=== PATIENT | male | born 1950 | race African-American/Black ===

== ENCOUNTER 2020-03-01 09:37 | Emergency (ER) | payer MEDICARE, SELFPAY ==
--- NOTE | 2020-03-01 10:25 | CT ---
CT HEAD WITHOUT CONTRAST: Date: 03/01/2020 INDICATION: Mental status change. Possible head injury. FINDINGS: Ventricles have normal size and position. There is no evidence of intracranial hemorrhage. No evidenc e of mass, infarct, edema, or other acute process. Paranasal sinuses appear clear. IMPRESSION: No acute process. POS: AGW
--- NOTE | 2020-03-01 10:32 | RAD ---
Exam: Chest one view HISTORY:Altered mental status. Seizure. Comparison: 09/14/2006 FINDINGS: Cardiac silhouette: Normal Aorta: Unremarkable Pulmonary vessels: Normal Costophrenic angles: Clear LUNGS: No masses or consolidation. Pneumothorax: None Osseous abnormalities: None IMPRESSION: No acute cardiopulmonary process.
[2020-03-01 10:53] LABS: #Eosinphils 0.1 thou/uL (0.0-0.7); #Lymphocytes 1.9 thou/uL (1.20-3.40); #Monocytes 0.8 thou/uL (0.11-0.59); %Basophils 0.4 % (0.0-1.0); %Eosinophils 0.8 % (0.0-10.0); %Lymphocytes 21.9 % (21.0-51.0); %Monocytes 9.1 % (0.0-10.0); %Neutrophils 67.8 % (42.0-75.0); Hemoglobin 13.5 g/dL (14.0-18.0); Mean Corpuscular HGB CONC 32.8 g/dL (32.0-36.0); Mean Corpuscular Hemoglobin 31.9 pg (27.0-31.0); Mean Corpuscular Volume 97.4 fL (78.0-98.0); Mean Platelet Volume 7.7 fL (7.4-10.4); Platelet Count 155 thou/uL (130-400); RBC Distribution Width 11.6 % (11.5-14.5); Red Blood Cell (RBC) Count 4.23 mill/uL (4.70-6.10); White Blood Cell (WBC) Count 8.8 thou/uL (4.8-10.8)
[2020-03-01 11:14] LABS: ALT (SGPT) 18 U/L (8-55); AST (SGOT) 20 U/L (5-34); Alkaline Phosphatase 59 U/L (40-110); Anion Gap 17 mmol/L (10-20); BUN (Urea Nitrogen) 19 mg/dL (8.4-25.7); Bilirubin, Total 0.4 mg/dL (0.2-1.2); CK (CPK) 206 U/L (30-200); Calc. Creatinine Clearance 0 mL/min (70-130); Calcium 8.7 mg/dL (7.8-10.44); Carbon Dioxide 19 mmol/L (23-31); Chloride 108 mmol/L (98-107); Globulin 3.2 g/dL (2.4-3.5); Glucose 92 mg/dL (80-115); Lipase 31 U/L (8-78); Potassium 3.9 mmol/L (3.5-5.1); Protein, Total 7.2 g/dL (5.8-8.1); Sodium 140 mmol/L (136-145)
[2020-03-01 11:18] LABS: Acetaminophen Less than 6.0 mcg/mL (10.0-30.0); Alcohol Less than 10 mg/dL (Less than 10); Salicylate Less than 8.0 mg/dL (15.0-30.0)
[2020-03-01 11:33] LABS: CKMB 2.3 ng/mL (0-6.6)
[2020-03-01 11:50] LABS: Bilirubin Negative (Negative); Blood, Urine Negative (Negative); Clarity Clear (Clear); Glucose, Urine (Dipstick) Normal (Negative); Ketone, Urine Trace mg/dL (Negative); Leukocyte Negative Leu/uL (Negative); Nitrite Negative (Negative); Protein, Urine (Dipstick) 20 mg/dL (Neg-Trace); Urobilinogen Normal mg/dL (Less than 2); pH, Urine 5.5 (5.0-9.0)
[2020-03-01 12:02] LABS: Amphetamine Not Detected (NotDetected); Barbiturates Screen Not Detected (NotDetected); Benzodiazepine Screen Not Detected (NotDetected); Cocaine Metabolite Screen Not Detected (NotDetected); Medtox Control Line Valid? VALID (VALID); Medtox Reader # READER 1; Methadone Not Detected (NotDetected); Methamphetamine Not Detected (NotDetected); Opiate Screen Not Detected (NotDetected); Oxycodone Screen Not Detected (NotDetected); Phencyclidine (PCP) Not Detected (NotDetected); THC/Cannabinoid Screen Not Detected (NotDetected); Tricyclic Screen Not Detected (NotDetected)
[2020-03-01] MEDS ORDERED: levETIRAcetam in NS 100 ML ONE (12:54)
[2020-03-01] MEDS ORDERED: levETIRAcetam in NS 100 ML IVPB SCH (13:00)
[2020-03-01 13:06] LABS: Troponin I 0.048 ng/mL (< 0.028)
== END 2020-03-01 13:57 | disposition home or self-care (01) ==
LOC: ERS 09:37
DX: G40.909 Epilepsy, unspecified, not intractable, without status epilepticus (principal)
CPT/HCPCS: 36415; 36416; 70450; 71045; 80053; 80306; 80307; 81003; 82140; 82550; 82553; 83690; 83880; 84146; 84443; 84484; 85025; 93005; 96365; J1953

== ENCOUNTER 2020-11-01 12:22 | Emergency (ER) | payer MEDICARE ==
[2020-11-01 15:25] LABS: #Basophils 0.1 thou/uL (0.0-0.2); #Lymphocytes 1.3 thou/uL (1.20-3.40); #Monocytes 0.6 thou/uL (0.11-0.59); #Neutrophils 5.5 thou/uL (1.40-6.50); %Basophils 0.8 % (0.0-1.0); %Eosinophils 0.4 % (0.0-10.0); %Lymphocytes 17.3 % (21.0-51.0); %Monocytes 8.5 % (0.0-10.0); %Neutrophils 73.1 % (42.0-75.0); Hemoglobin 13.5 g/dL (14.0-18.0); Mean Corpuscular Hemoglobin 32.1 pg (27.0-31.0); Mean Corpuscular Volume 94.2 fL (78.0-98.0); Mean Platelet Volume 8.2 fL (7.4-10.4); Platelet Count 148 thou/uL (130-400); RBC Distribution Width 11.2 % (11.5-14.5); Red Blood Cell (RBC) Count 4.19 mill/uL (4.70-6.10); White Blood Cell (WBC) Count 7.5 thou/uL (4.8-10.8)
[2020-11-01 15:46] LABS: ALT (SGPT) 17 U/L (8-55); AST (SGOT) 21 U/L (5-34); Alkaline Phosphatase 65 U/L (40-110); Anion Gap 6 mmol/L (10-20); BUN (Urea Nitrogen) 12 mg/dL (8.4-25.7); Bilirubin, Total 0.8 mg/dL (0.2-1.2); Calc. Creatinine Clearance 0 mL/min (70-130); Carbon Dioxide 31 mmol/L (23-31); Chloride 103 mmol/L (98-107); Glucose 106 mg/dL (80-115); Potassium 4.3 mmol/L (3.5-5.1); Sodium 136 mmol/L (136-145)
[2020-11-01] MEDS ORDERED: Meclizine HCl 25 MG TAB ONE ×2 (15:52→15:54)
[2020-11-01 16:27] LABS: Bilirubin Negative (Negative); Blood, Urine Negative (Negative); Clarity Clear (Clear); Glucose, Urine (Dipstick) Normal (Negative); Ketone, Urine Trace mg/dL (Negative); Leukocyte Negative Leu/uL (Negative); Nitrite Negative (Negative); Protein, Urine (Dipstick) Negative (Neg-Trace); Specific Gravity, Urine 1.017 (1.002-1.036); Urobilinogen Normal mg/dL (Less than 2); pH, Urine 7.5 (5.0-9.0)
== END 2020-11-01 17:26 | disposition home or self-care (01) ==
LOC: ERS 12:22
DX: R42 Dizziness and giddiness (principal); D64.9 Anemia, unspecified
CPT/HCPCS: 36415; 70450; 80053; 81003; 84484; 85025; 93005

== ENCOUNTER 2022-11-23 11:03 | Emergency (ER) | payer MEDICARE ==
[~2022-11-23 11:03] MED LIST: Iopamidol-370 76% 500 ML MDV (1 ML CHARGE) ONE
[2022-11-23] MEDS ORDERED: Ketorolac Tromethamine 30 MG/ML VIAL ONE (14:20)
[2022-11-23 15:50] LABS: #Eosinphils 0.1 thou/uL (0.0-0.7); #Monocytes 0.8 thou/uL (0.11-0.59); #Neutrophils 4.7 thou/uL (1.40-6.50); %Basophils 0.4 % (0.0-1.0); %Eosinophils 0.8 % (0.0-10.0); %Lymphocytes 22.7 % (21.0-51.0); %Monocytes 10.5 % (0.0-10.0); %Neutrophils 64.9 % (42.0-75.0); Hematocrit 35.8 % (42.0-52.0); Hemoglobin 11.6 g/dL (14.0-18.0); Mean Corpuscular HGB CONC 32.4 g/dL (32.0-36.0); Mean Corpuscular Hemoglobin 29.7 pg (27.0-31.0); Mean Corpuscular Volume 91.8 fl (78.0-98.0); Mean Platelet Volume 10.3 fL (7.4-10.4); Platelet Count 169 10x3/uL (130-400); RBC Distribution Width 13.2 % (11.5-14.5); White Blood Cell (WBC) Count 7.3 10x3/uL (4.8-10.8)
[2022-11-23 16:03] LABS: INR-International Normal Ratio 1.1; Prothrombin Time 14.9 sec (12.0-14.7)
[2022-11-23 16:04] LABS: PTT 31.2 sec (22.9-36.1)
[2022-11-23 16:06] LABS: ALT (SGPT) 25 U/L (8-55); AST (SGOT) 26 U/L (5-34); Albumin 3.9 g/dL (3.4-4.8); Alkaline Phosphatase 481 U/L (40-110); Anion Gap 13 mmol/L (10-20); BUN (Urea Nitrogen) 15 mg/dL (8.4-25.7); Bilirubin, Total 0.6 mg/dL (0.2-1.2); Calc. Creatinine Clearance 0 mL/min (70-130); Calcium 9.4 mg/dL (7.8-10.44); Carbon Dioxide 24 mmol/L (23-31); Chloride 105 mmol/L (98-107); Estimated GFR 94; Globulin 3.8 g/dL (2.4-3.5); Glucose 94 mg/dL (83-110); Potassium 4.4 mmol/L (3.5-5.1); Protein, Total 7.7 g/dL (5.8-8.1); Sodium 138 mmol/L (136-145)
[2022-11-23] MEDS ORDERED: Acetaminophen 500 MG TAB ONE (17:53)
== END 2022-11-23 18:28 | disposition home or self-care (01) ==
LOC: ERS 11:03
DX: D11.9 Benign neoplasm of major salivary gland, unspecified (principal); R22.0 Localized swelling, mass and lump, head
CPT/HCPCS: 36415; 70492; 80053; 84443; 85025; 85610; 85730; 96374; J1885; Q9967

== ENCOUNTER 2022-12-08 04:13 | Inpatient (IN) | payer MEDICARE ==
[2022-12-08] MEDS ORDERED: Ondansetron PF 4 MG/2 ML Vial ONE (04:41)
[2022-12-08] MEDS ORDERED: Morphine 4 MG/ML VIAL ONE ×2 (04:41→06:11)
[2022-12-08 05:19] LABS: #Monocytes 0.7 thou/uL (0.11-0.59); #Neutrophils 6.7 thou/uL (1.40-6.50); %Basophils 0.4 % (0.0-1.0); %Eosinophils 0.1 % (0.0-10.0); %Lymphocytes 10.9 % (21.0-51.0); %Monocytes 8.1 % (0.0-10.0); %Neutrophils 78.3 % (42.0-75.0); Hematocrit 31.9 % (42.0-52.0); Hemoglobin 10.8 g/dL (14.0-18.0); Mean Corpuscular HGB CONC 33.9 g/dL (32.0-36.0); Mean Corpuscular Hemoglobin 30.3 pg (27.0-31.0); Mean Corpuscular Volume 89.4 fl (78.0-98.0); Mean Platelet Volume 10.1 fL (7.4-10.4); Platelet Count 122 10x3/uL (130-400); RBC Distribution Width 13.6 % (11.5-14.5); Red Blood Cell (RBC) Count 3.57 mill/uL (4.70-6.10); White Blood Cell (WBC) Count 8.6 10x3/uL (4.8-10.8)
[2022-12-08] MEDS ORDERED: Magnesium 2 GM/50 ML BAG (IN WATER) ONE (05:29)
[2022-12-08 05:45] LABS: ALT (SGPT) 27 U/L (8-55); AST (SGOT) 34 U/L (5-34); Alkaline Phosphatase 659 U/L (40-110); Anion Gap 16 mmol/L (10-20); BUN (Urea Nitrogen) 18 mg/dL (8.4-25.7); Bilirubin, Total 0.5 mg/dL (0.2-1.2); Calc. Creatinine Clearance 0 mL/min (70-130); Calcium 9.4 mg/dL (7.8-10.44); Carbon Dioxide 21 mmol/L (23-31); Chloride 106 mmol/L (98-107); Estimated GFR 75; Globulin 2.8 g/dL (2.4-3.5); Glucose 149 mg/dL (83-110); Lipase 22 U/L (8-78); Magnesium 1.6 mg/dL (1.6-2.6); Potassium 3.5 mmol/L (3.5-5.1); Protein, Total 6.8 g/dL (5.8-8.1); Sodium 139 mmol/L (136-145)
[2022-12-08 05:49] LABS: Troponin I Less than 0.010 ng/mL (< 0.028)
[2022-12-08 06:37] LABS: Anisocytosis SLIGHT = 6-15 cells HPF (0-5); Burr Cells MODERATE= 6-15 cells HPF (0-1); CellaVision Operator ID LAB.JMM; Elliptocytes SLIGHT = 2-5 cells HPF (0-1); Macrocytosis MODERATE=16-30 cells HPF (0-5); Platelet Adequacy Comment Platelets Decreased; Poikilocytosis SLIGHT = 6-15 cells HPF (0-5); RBC Morphology Within Normal Limits
[2022-12-08 08:05] LABS: Bacteria/HPF None Seen HPF (None Seen); Bilirubin Negative (Negative); Blood, Urine 3+ (Negative); CAUTI Indications for Culture Pelvic or flank pain; Clarity Turbid (Clear); Glucose, Urine (Dipstick) Normal (Negative); Ketone, Urine Trace mg/dL (Negative); Leukocyte Negative Leu/uL (Negative); Nitrite Negative (Negative); Protein, Urine (Dipstick) 30 mg/dL (Neg-Trace); RBC/HPF Greater than 50 HPF (0-3); Squamous Epithelial 0-3 HPF (0-3); Urobilinogen Normal mg/dL (Less than 2); WBC/HPF 21-50 HPF (0-3)
[2022-12-08 08:17] LABS: Urine Culture Reflex Yes Yes
[2022-12-08] MEDS: Lactated Ringer's 1,000 ML IV SCH ×2 (11:01→19:56)
[2022-12-08 11:10] VITALS: BMI 19.0
[2022-12-08] MEDS ORDERED: Iopamidol 370 76% 100 ML VIAL ONE (11:23)
[2022-12-08] MEDS: Morphine 4 MG/ML VIAL SLOW IVP PRN ×3 (11:58→23:07)
[2022-12-08 19:03] LABS: INR-International Normal Ratio 1.3; Prothrombin Time 16.7 sec (12.0-14.7)
[2022-12-08 19:04] LABS: PTT 28.1 sec (22.9-36.1)
[2022-12-08] MEDS: levETIRAcetam 500 MG/5 ML VIAL SLOW IVP SCH (19:56)
[2022-12-09] MEDS: Morphine 4 MG/ML VIAL SLOW IVP PRN ×4 (05:42→20:53)
[2022-12-09] MEDS: Lactated Ringer's 1,000 ML IV SCH ×2 (05:42→17:04)
[2022-12-09 06:39] LABS: #Monocytes 1.1 thou/uL (0.11-0.59); %Basophils 0.2 % (0.0-1.0); %Eosinophils 0.2 % (0.0-10.0); %Lymphocytes 12.5 % (21.0-51.0); Hematocrit 30.8 % (42.0-52.0); Hemoglobin 10.1 g/dL (14.0-18.0); Mean Corpuscular HGB CONC 32.8 g/dL (32.0-36.0); Mean Corpuscular Hemoglobin 30.3 pg (27.0-31.0); Mean Corpuscular Volume 92.5 fl (78.0-98.0); Mean Platelet Volume 10.7 fL (7.4-10.4); Platelet Count 108 10x3/uL (130-400); Red Blood Cell (RBC) Count 3.33 mill/uL (4.70-6.10); White Blood Cell (WBC) Count 8.2 10x3/uL (4.8-10.8)
[2022-12-09 07:01] LABS: ALT (SGPT) 22 U/L (8-55); AST (SGOT) 31 U/L (5-34); Albumin 3.2 g/dL (3.4-4.8); Alkaline Phosphatase 556 U/L (40-110); Anion Gap 13 mmol/L (10-20); BUN (Urea Nitrogen) 16 mg/dL (8.4-25.7); Bilirubin, Total 1.2 mg/dL (0.2-1.2); Calc. Creatinine Clearance 70 mL/min (70-130); Calcium 8.4 mg/dL (7.8-10.44); Carbon Dioxide 23 mmol/L (23-31); Chloride 110 mmol/L (98-107); Estimated GFR 92; Globulin 2.8 g/dL (2.4-3.5); Glucose 106 mg/dL (83-110); Magnesium 1.7 mg/dL (1.6-2.6); Sodium 142 mmol/L (136-145)
[2022-12-09] MEDS: levETIRAcetam 500 MG/5 ML VIAL SLOW IVP SCH ×2 (08:36→20:53)
[2022-12-09] MEDS ORDERED: Iopamidol-370 76% 500 ML MDV (1 ML CHARGE) ONE (11:51)
[2022-12-09] MEDS ORDERED: Lidocaine 1% w/Epinephrine 1:100K 20 ML VIAL ONE (13:02)
[2022-12-09] MEDS ORDERED: Midazolam HCl 2 mg/2 ml Vial ONE (13:42)
[2022-12-09] MEDS ORDERED: fentaNYL 50 mcg/mL 1 mL Vial ONE ×2 (13:42→15:04)
[2022-12-09] MEDS ORDERED: Sodium Bicarbonate 2.5 MEQ/5 ML VIAL ONE (15:04)
[2022-12-09] MEDS ORDERED: Iopamidol 300 61% 50 ML VIAL (IV ROOM USE) FS ONE (15:15)
[2022-12-10] MEDS: Lactated Ringer's 1,000 ML IV SCH ×2 (02:41→05:41)
[2022-12-10 05:05] LABS: #Neutrophils 5.5 thou/uL (1.40-6.50); %Basophils 0.4 % (0.0-1.0); %Eosinophils 0.4 % (0.0-10.0); %Lymphocytes 14.3 % (21.0-51.0); %Monocytes 13.5 % (0.0-10.0); %Neutrophils 70.6 % (42.0-75.0); Hematocrit 29.9 % (42.0-52.0); Hemoglobin 9.8 g/dL (14.0-18.0); Mean Corpuscular HGB CONC 32.8 g/dL (32.0-36.0); Mean Corpuscular Hemoglobin 30.2 pg (27.0-31.0); Mean Platelet Volume 10.3 fL (7.4-10.4); RBC Distribution Width 13.9 % (11.5-14.5); Red Blood Cell (RBC) Count 3.25 mill/uL (4.70-6.10); White Blood Cell (WBC) Count 7.7 10x3/uL (4.8-10.8)
[2022-12-10 05:31] LABS: ALT (SGPT) 21 U/L (8-55); AST (SGOT) 31 U/L (5-34); Albumin 3.2 g/dL (3.4-4.8); Alkaline Phosphatase 478 U/L (40-110); Anion Gap 14 mmol/L (10-20); BUN (Urea Nitrogen) 15 mg/dL (8.4-25.7); Bilirubin, Total 1.2 mg/dL (0.2-1.2); Calc. Creatinine Clearance 70 mL/min (70-130); Calcium 8.4 mg/dL (7.8-10.44); Carbon Dioxide 23 mmol/L (23-31); Chloride 107 mmol/L (98-107); Estimated GFR 92; Globulin 2.7 g/dL (2.4-3.5); Glucose 69 mg/dL (83-110); Potassium 3.9 mmol/L (3.5-5.1); Protein, Total 5.9 g/dL (5.8-8.1); Sodium 140 mmol/L (136-145)
[2022-12-10] MEDS: Morphine 4 MG/ML VIAL SLOW IVP PRN (05:38)
[2022-12-10 05:56] LABS: Platelet Count 96 10x3/uL (130-400)
[2022-12-10] MEDS ORDERED: fentaNYL 50 mcg/mL 1 mL Vial ONE ×2 (06:38→17:32)
[2022-12-10] MEDS: levETIRAcetam 500 MG/5 ML VIAL SLOW IVP SCH ×2 (08:38→21:23)
[2022-12-10] MEDS: Dextrose 5%-Lactated Ringers 1,000 ML IV SCH ×2 (10:44→21:24)
[2022-12-10] MEDS ORDERED: Fleet Saline Enema 133 ML BOT PR SCH (13:45)
[2022-12-10] MEDS ORDERED: SUGAMMADEX SODIUM 200 MG/2 ML VIAL ONE (17:32)
[2022-12-10] MEDS ORDERED: PROPOFOL 200 MG/20 ML VIAL ONE (17:45)
[2022-12-10] MEDS ORDERED: Ondansetron PF 4 MG/2 ML Vial ONE (17:45)
[2022-12-10] MEDS ORDERED: Rocuronium Bromide 10 MG/ML (10ML VIAL) ONE (17:45)
[2022-12-10] MEDS ORDERED: Lidocaine 1% PF 5 ML VIAL ONE (17:45)
[2022-12-10] MEDS ORDERED: Piperacillin/Tazobactam 3.375 GM VIAL ONE (18:01)
[2022-12-10] MEDS ORDERED: Mineral Oil ENEMA PR SCH ×2 (18:15)
[2022-12-10] MEDS ORDERED: Promethazine HCl 25 MG/ML VIAL IM PRN (18:42)
[2022-12-10] MEDS ORDERED: Ondansetron HCl/PF 4 MG/2 ML Vial IVP PRN (18:42)
[2022-12-10] MEDS: Polyethylene Glycol 3350 17 GM Packet PO SCH (21:24)
[2022-12-10] MEDS ORDERED: Acetaminophen 500 MG TAB PO SCH (23:00)
[2022-12-11] MEDS: Dextrose 5%-Lactated Ringers 1,000 ML IV SCH (04:53)
[2022-12-11 05:44] LABS: #Eosinphils 0.1 thou/uL (0.0-0.7); #Neutrophils 5.4 thou/uL (1.40-6.50); %Basophils 0.3 % (0.0-1.0); %Eosinophils 0.9 % (0.0-10.0); %Monocytes 13.3 % (0.0-10.0); %Neutrophils 71.7 % (42.0-75.0); Hematocrit 29.9 % (42.0-52.0); Mean Corpuscular HGB CONC 33.4 g/dL (32.0-36.0); Mean Corpuscular Volume 89.8 fl (78.0-98.0); Mean Platelet Volume 10.7 fL (7.4-10.4); Platelet Count 96 10x3/uL (130-400); RBC Distribution Width 13.4 % (11.5-14.5); Red Blood Cell (RBC) Count 3.33 mill/uL (4.70-6.10); White Blood Cell (WBC) Count 7.5 10x3/uL (4.8-10.8)
[2022-12-11 06:00] LABS: ALT (SGPT) 19 U/L (8-55); AST (SGOT) 30 U/L (5-34); Albumin 3.1 g/dL (3.4-4.8); Alkaline Phosphatase 433 U/L (40-110); Anion Gap 13 mmol/L (10-20); BUN (Urea Nitrogen) 11 mg/dL (8.4-25.7); Calc. Creatinine Clearance 77 mL/min (70-130); Calcium 7.9 mg/dL (7.8-10.44); Carbon Dioxide 21 mmol/L (23-31); Chloride 102 mmol/L (98-107); Estimated GFR 95; Globulin 2.6 g/dL (2.4-3.5); Glucose 123 mg/dL (83-110); Potassium 3.3 mmol/L (3.5-5.1); Protein, Total 5.7 g/dL (5.8-8.1); Sodium 133 mmol/L (136-145)
[2022-12-11] MEDS ORDERED: Ibuprofen 600 MG TAB PO PRN (07:18)
[2022-12-11] MEDS ORDERED: Potassium Chloride 20 MEQ TAB PO SCH (08:00)
[2022-12-11] MEDS ORDERED: Magnesium Citrate 300 ML BOT PO SCH (09:15)
[2022-12-11] MEDS: Acetaminophen 325 MG TAB PO PRN (10:24)
[2022-12-11] MEDS: Bicalutamide 50 MG TAB PO SCH (10:27)
[2022-12-11] MEDS: levETIRAcetam 500 MG TAB PO SCH ×2 (10:28→20:23)
[2022-12-11] MEDS: Polyethylene Glycol 3350 17 GM Packet PO SCH ×2 (12:42→20:28)
[2022-12-11] MEDS ORDERED: Senokot S 8.6-50 MG TAB PO SCH (21:00)
[2022-12-12 05:42] LABS: #Eosinphils 0.1 thou/uL (0.0-0.7); #Monocytes 0.8 thou/uL (0.11-0.59); #Neutrophils 4.5 thou/uL (1.40-6.50); %Basophils 0.3 % (0.0-1.0); %Eosinophils 1.4 % (0.0-10.0); %Lymphocytes 20.4 % (21.0-51.0); %Monocytes 11.8 % (0.0-10.0); %Neutrophils 64.8 % (42.0-75.0); Hematocrit 31.3 % (42.0-52.0); Hemoglobin 10.5 g/dL (14.0-18.0); Mean Corpuscular HGB CONC 33.5 g/dL (32.0-36.0); Mean Corpuscular Hemoglobin 29.7 pg (27.0-31.0); Mean Corpuscular Volume 88.7 fl (78.0-98.0); Mean Platelet Volume 10.4 fL (7.4-10.4); Platelet Count 106 10x3/uL (130-400); RBC Distribution Width 13.3 % (11.5-14.5); Red Blood Cell (RBC) Count 3.53 mill/uL (4.70-6.10)
[2022-12-12 06:08] LABS: ALT (SGPT) 20 U/L (8-55); AST (SGOT) 27 U/L (5-34); Albumin 3.3 g/dL (3.4-4.8); Alkaline Phosphatase 455 U/L (40-110); Anion Gap 15 mmol/L (10-20); BUN (Urea Nitrogen) 10 mg/dL (8.4-25.7); Bilirubin, Total 0.4 mg/dL (0.2-1.2); Calc. Creatinine Clearance 73 mL/min (70-130); Calcium 8.4 mg/dL (7.8-10.44); Carbon Dioxide 23 mmol/L (23-31); Chloride 103 mmol/L (98-107); Estimated GFR 93; Globulin 2.9 g/dL (2.4-3.5); Glucose 92 mg/dL (83-110); Potassium 3.6 mmol/L (3.5-5.1); Protein, Total 6.2 g/dL (5.8-8.1); Sodium 137 mmol/L (136-145)
[2022-12-12] MEDS ORDERED: Polyethylene Glycol 3350 17 GM Packet PO SCH (09:00)
[2022-12-12] MEDS: levETIRAcetam 500 MG TAB PO SCH ×2 (10:31→21:45)
[2022-12-12] MEDS: Polyethylene Glycol 3350 17 GM Packet PO SCH ×2 (10:32→21:43)
[2022-12-12] MEDS: Bicalutamide 50 MG TAB PO SCH (10:32)
[2022-12-12] MEDS: Acetaminophen 325 MG TAB PO PRN (10:39)
[2022-12-12] MEDS ORDERED: Benzocaine 20% Spray 60 ML CAN PO PRN (12:30)
[2022-12-13] MEDS: Bicalutamide 50 MG TAB PO SCH (08:44)
[2022-12-13] MEDS: levETIRAcetam 500 MG TAB PO SCH ×2 (08:44→21:00)
[2022-12-13] MEDS: Polyethylene Glycol 3350 17 GM Packet PO SCH ×2 (08:47→21:02)
[2022-12-14 05:16] LABS: #Eosinphils 0.1 thou/uL (0.0-0.7); #Monocytes 0.9 thou/uL (0.11-0.59); #Neutrophils 2.4 thou/uL (1.40-6.50); %Basophils 0.4 % (0.0-1.0); %Eosinophils 1.6 % (0.0-10.0); %Lymphocytes 28.7 % (21.0-51.0); %Monocytes 17.6 % (0.0-10.0); %Neutrophils 48.7 % (42.0-75.0); Hematocrit 29.9 % (42.0-52.0); Mean Corpuscular HGB CONC 33.4 g/dL (32.0-36.0); Mean Corpuscular Hemoglobin 29.8 pg (27.0-31.0); Mean Platelet Volume 10.3 fL (7.4-10.4); Platelet Count 123 10x3/uL (130-400); RBC Distribution Width 13.3 % (11.5-14.5); Red Blood Cell (RBC) Count 3.36 mill/uL (4.70-6.10)
[2022-12-14 05:39] LABS: Anion Gap 14 mmol/L (10-20); BUN (Urea Nitrogen) 11 mg/dL (8.4-25.7); Calc. Creatinine Clearance 82 mL/min (70-130); Calcium 8.2 mg/dL (7.8-10.44); Carbon Dioxide 23 mmol/L (23-31); Chloride 103 mmol/L (98-107); Estimated GFR 97; Glucose 85 mg/dL (83-110); Potassium 3.6 mmol/L (3.5-5.1); Sodium 136 mmol/L (136-145)
[2022-12-14] MEDS: levETIRAcetam 500 MG TAB PO SCH (07:55)
[2022-12-14] MEDS: Polyethylene Glycol 3350 17 GM Packet PO SCH (07:55)
[2022-12-14] MEDS: Bicalutamide 50 MG TAB PO SCH (07:55)
[2022-12-14] MEDS ORDERED: Polyethylene Glycol 3350 17 GM Packet PO SCH (09:00)
[2022-12-14 15:56] VITALS: BP 127/75; TEMP 98.1
== END 2022-12-14 18:47 | disposition home or self-care (01) | DRG 715 ==
LOC: ERS 04:13 → ERHOLD 06:58 → SURG A 09:13
PROVIDERS: ADMIT Emergency Medicine; ATTEND Emergency Medicine
PROC: 0T9B70Z Drainage of Bladder with Drainage Device, Via Natural or Artificial Opening (ICD-10-PCS; 2022-12-08)
PROC: 0QB23ZX Excision of Right Pelvic Bone, Percutaneous Approach, Diagnostic (ICD-10-PCS; principal; 2022-12-09)
PROC: 0T9330Z Drainage of Right Kidney Pelvis with Drainage Device, Percutaneous Approach (ICD-10-PCS; 2022-12-09)
PROC: 0DJD8ZZ Inspection of Lower Intestinal Tract, Via Natural or Artificial Opening Endoscopic (ICD-10-PCS; 2022-12-10)
DX: C61 Malignant neoplasm of prostate (principal); C79.51 Secondary malignant neoplasm of bone; N13.30 Unspecified hydronephrosis; K55.9 Vascular disorder of intestine, unspecified; K63.3 Ulcer of intestine; J90 Pleural effusion, not elsewhere classified; K11.8 Other diseases of salivary glands; R33.9 Retention of urine, unspecified; N28.89 Other specified disorders of kidney and ureter; R26.81 Unsteadiness on feet; R19.00 Intra-abdominal and pelvic swelling, mass and lump, unspecified site; K56.41 Fecal impaction; R91.1 Solitary pulmonary nodule; I45.81 Long QT syndrome; G40.909 Epilepsy, unspecified, not intractable, without status epilepticus; K40.20 Bilateral inguinal hernia, without obstruction or gangrene, not specified as recurrent; D69.6 Thrombocytopenia, unspecified; E87.6 Hypokalemia; Z79.899 Other long term (current) drug therapy; Z79.2 Long term (current) use of antibiotics; Z87.891 Personal history of nicotine dependence; Z80.42 Family history of malignant neoplasm of prostate
CPT/HCPCS: 20225; 36415; 36416; 50430; 50432; 51702; 71260; 74177; 74425; 77012; 78306; 80048; 80053; 81001; 82378; 83605; 83690; 83735; 83880; 84153; 84484; 85025; 85610; 85730; 86304; 87086; 88112; 88307; 88333; 88334; 88341; 88342; 93005; 96361; 96365; 96375; 96376; A4314; A9503; C1729; J1650; J1953; J2250; J2270; J2405; J2543; J2704; J3010; J3475; J7120; Q9967

== ENCOUNTER 2023-02-23 07:07 | Day surgery (SDC) | payer MEDICARE ==
[2023-02-23 09:28] VITALS: BP 122/76; TEMP 98.4
[2023-02-23] MEDS ORDERED: Iopamidol 300 61% 100 ML VIAL FS ONE (11:39)
[2023-02-23] MEDS ORDERED: FLU VACC QS2023(65UP)/MF59C/PF 60 MCG/0.5 ML SYRINGE IM ONE (14:00)
== END 2023-02-23 09:27 | disposition home or self-care (01) ==
LOC: CT 07:07
PROVIDERS: ATTEND Urology
PROC: 0T25X0Z Change Drainage Device in Kidney, External Approach (ICD-10-PCS; principal; 2023-02-23)
DX: N13.5 Crossing vessel and stricture of ureter without hydronephrosis (principal); N13.39 Other hydronephrosis
CPT/HCPCS: 50435; C1729; Q9967

== ENCOUNTER 2023-04-08 07:08 | Day surgery (SDC) | payer MEDICARE, OTHER ==
[2023-04-08] MEDS ORDERED: Sodium Bicarbonate 0.5 MEQ/ML SDV 10 ML ONE (07:46)
[2023-04-08] MEDS ORDERED: Lidocaine 1% PF 5 ML VIAL ONE ×2 (07:46→09:07)
[2023-04-08] MEDS ORDERED: Iopamidol 30 ML ONE (07:47)
== END 2023-04-08 09:15 | disposition home or self-care (01) ==
LOC: CT 07:08
PROVIDERS: ATTEND Urology
PROC: 0T25X0Z Change Drainage Device in Kidney, External Approach (ICD-10-PCS; principal; 2023-04-08)
DX: N13.5 Crossing vessel and stricture of ureter without hydronephrosis (principal)
CPT/HCPCS: 50435; Q9967

== ENCOUNTER 2023-05-11 08:35 | Outpatient (CLI) | payer MEDICARE, MEDICAID | END 2023-05-11 08:36 | disposition home or self-care (01) | LOC: CT 08:35 | PROVIDERS: ATTEND Internal Medicine Hematology & Oncology | DX: C61 Malignant neoplasm of prostate (principal); C79.51 Secondary malignant neoplasm of bone; K40.90 Unilateral inguinal hernia, without obstruction or gangrene, not specified as recurrent; J90 Pleural effusion, not elsewhere classified; M89.9 Disorder of bone, unspecified; K62.89 Other specified diseases of anus and rectum | CPT/HCPCS: 71260; 74177; 78306; A9503 ==

== ENCOUNTER 2023-07-27 10:52 | Outpatient (CLI) | payer MEDICARE, MEDICAID ==
[2023-07-27 12:23] LABS: Hematocrit 32.4 % (38.8-50.0); Hemoglobin 10.6 g/dL (13.5-17.5)
[2023-07-27 12:39] LABS: Anion Gap 10 mmol/L (10-20); BUN (Urea Nitrogen) 20 mg/dL (8.4-25.7); Calc. Creatinine Clearance 0 mL/min (70-130); Calcium 9.1 mg/dL (7.8-10.44); Carbon Dioxide 26 mmol/L (23-31); Chloride 109 mmol/L (98-107); Estimated GFR 95; Glucose 99 mg/dL (83-110); Potassium 4.2 mmol/L (3.5-5.1); Sodium 141 mmol/L (136-145)
== END 2023-07-27 10:53 | disposition home or self-care (01) ==
LOC: LABBT 10:52
PROVIDERS: ATTEND Otolaryngology Plastic Surgery within the Head & Neck
DX: Z01.818 Encounter for other preprocedural examination (principal); K11.8 Other diseases of salivary glands
CPT/HCPCS: 80048; 85014; 85018; 93005; 93010

== ENCOUNTER 2023-08-04 11:44 | Day surgery (SDC) | payer MEDICARE, MEDICAID ==
[2023-07-27 11:31] VITALS: BMI 19.5
[2023-08-04] MEDS ORDERED: fentaNYL PF 100 MCG/2 ML SYRINGE ONE (15:15)
[2023-08-04] MEDS ORDERED: PROPOFOL 20 ML ONE (15:15)
[2023-08-04] MEDS ORDERED: Midazolam HCl 2 mg/2 ml Vial ONE (15:16)
[2023-08-04] MEDS ORDERED: Bacitracin Zinc Ointment 30 gm TUBE ONE (15:18)
[2023-08-04] MEDS ORDERED: EPINEPHrine 1 MG/ML VIAL ONE (15:18)
[2023-08-04] MEDS ORDERED: Lidocaine 1% (PF) 30 ML VIAL ONE (15:18)
[2023-08-04] MEDS ORDERED: SUCCINYLCHOLINE/SOD CL,ISO/PF 200 MG/10 ML SYRINGE FS ONE (15:26)
[2023-08-04] MEDS ORDERED: Lidocaine 1% PF 5 ML VIAL ONE (15:26)
[2023-08-04] MEDS ORDERED: CEFAZOLIN 1 GM VIAL ONE (15:47)
[2023-08-04] MEDS ORDERED: Ketamine In 0.9 % NaCl 50 MG/5 ML SYRINGE ONE (15:50)
[2023-08-04] MEDS ORDERED: PHENYLEPHRINE-NS 100 MCG/ML 10 ML SYRINGE ONE (16:34)
[2023-08-04] MEDS ORDERED: Ondansetron PF 4 MG/2 ML Vial ONE (16:51)
[2023-08-04] MEDS ORDERED: Dexamethasone 20 MG/5 ML VIAL ONE (16:51)
[2023-08-04] MEDS ORDERED: HYDROcodone/Acetaminophen 5/325 mg Tablet ONE (19:38)
== END 2023-08-04 20:00 | disposition home or self-care (01) ==
LOC: SDC 11:44
PROVIDERS: ATTEND Otolaryngology Plastic Surgery within the Head & Neck
PROC: 0CT90ZZ Resection of Left Parotid Gland, Open Approach (ICD-10-PCS; principal; 2023-08-04)
PROC: 0CT80ZZ Resection of Right Parotid Gland, Open Approach (ICD-10-PCS; 2023-08-04)
DX: D11.0 Benign neoplasm of parotid gland (principal); N18.9 Chronic kidney disease, unspecified; G40.909 Epilepsy, unspecified, not intractable, without status epilepticus; C61 Malignant neoplasm of prostate; Z79.899 Other long term (current) drug therapy
CPT/HCPCS: 42420; C1889; J0171; 88307; 88341; 88342; J0690; J1100; J2001; J2250; J2405; J2704; J3490

== ENCOUNTER 2023-09-10 08:51 | Outpatient (CLI) | payer MEDICARE, MEDICAID | END 2023-09-10 08:52 | disposition home or self-care (01) | LOC: NM 08:51 | PROVIDERS: ATTEND Internal Medicine Hematology & Oncology | DX: C61 Malignant neoplasm of prostate (principal); C79.51 Secondary malignant neoplasm of bone; D70.1 Agranulocytosis secondary to cancer chemotherapy; T45.1X5A Adverse effect of antineoplastic and immunosuppressive drugs, initial encounter | CPT/HCPCS: 78306; A9503 ==

== ENCOUNTER 2023-11-03 12:30 | Outpatient (CLI) | payer MEDICARE, MEDICAID | END 2023-11-03 12:31 | disposition home or self-care (01) | LOC: PET 12:30 | PROVIDERS: ATTEND Internal Medicine Hematology & Oncology | DX: C61 Malignant neoplasm of prostate (principal); C79.51 Secondary malignant neoplasm of bone; R97.20 Elevated prostate specific antigen [PSA]; R19.00 Intra-abdominal and pelvic swelling, mass and lump, unspecified site | CPT/HCPCS: 78815; A9552; A9595 ==

== ENCOUNTER 2024-01-20 09:30 | Emergency (ER) | payer MEDICARE, MEDICAID ==
[2024-01-20] MEDS ORDERED: Lidocaine 1% w/Epinephrine 1:100K 20 ML VIAL ONE (10:24)
[2024-01-20] MEDS ORDERED: Ketorolac Tromethamine 30 MG (1 mL) VIAL ONE (10:50)
== END 2024-01-20 11:59 | disposition home or self-care (01) ==
LOC: ERS 09:30
DX: C61 Malignant neoplasm of prostate (principal); C40.01 Malignant neoplasm of scapula and long bones of right upper limb; D17.21 Benign lipomatous neoplasm of skin and subcutaneous tissue of right arm
CPT/HCPCS: 73030; J1885; 96372; 99283

== ENCOUNTER 2024-01-30 10:33 | Emergency (ER) | payer MEDICARE, MEDICAID ==
[2024-01-30 11:12] LABS: #Basophils Less than 0.03 10x3/uL (0.0-0.2); #Eosinophils Less than 0.03 10x3/uL (0.0-0.7); %Basophils 0.6 % (0.0-1.0); %Lymphocytes 42.1 % (21.0-51.0); %Monocytes 3.7 % (0.0-10.0); %Neutrophils 53.3 % (42.0-75.0); Hematocrit 35.6 % (42.0-52.0); Mean Corpuscular HGB CONC 33.7 g/dL (32.0-36.0); Mean Corpuscular Hemoglobin 31.3 pg (27.0-31.0); Mean Corpuscular Volume 92.7 fL (78.0-98.0); Mean Platelet Volume 10.1 fL (7.4-10.4); Platelet Count 178 10x3/uL (130-400); RBC Distribution Width 12.2 % (11.5-14.5); Red Blood Cell (RBC) Count 3.84 mill/uL (4.70-6.10)
[2024-01-30 11:31] LABS: ALT (SGPT) 16 U/L (8-55); AST (SGOT) 27 U/L (5-34); Albumin 3.9 g/dL (3.4-4.8); Alkaline Phosphatase 666 U/L (40-110); Anion Gap 14 mmol/L (10-20); BUN (Urea Nitrogen) 13 mg/dL (8.4-25.7); Bilirubin, Total 0.9 mg/dL (0.2-1.2); Calc. Creatinine Clearance 0 mL/min (70-130); Calcium 8.9 mg/dL (7.8-10.44); Carbon Dioxide 23 mmol/L (23-31); Chloride 103 mmol/L (98-107); Estimated GFR 95; Globulin 3.9 g/dL (2.4-3.5); Glucose 120 mg/dL (83-110); Lipase 20 U/L (8-78); Potassium 4.1 mmol/L (3.5-5.1); Protein, Total 7.8 g/dL (5.8-8.1); Sodium 136 mmol/L (136-145)
[2024-01-30] MEDS ORDERED: Promethazine HCl 25 MG/ML VIAL ONE (11:52)
[2024-01-30] MEDS ORDERED: Ondansetron PF 4 MG/2 ML Vial ONE (11:52)
[2024-01-30 12:33] LABS: Bacteria/HPF None Seen HPF (None Seen); Bilirubin Negative (Negative); Blood, Urine Negative (Negative); CAUTI Indications for Culture Dysuria,urgency,freq; Clarity Clear (Clear); Glucose, Urine (Dipstick) 30 mg/dL (Negative); Ketone, Urine Negative (Negative); Leukocyte Negative Leu/uL (Negative); Nitrite Negative (Negative); Protein, Urine (Dipstick) 30 mg/dL (Neg-Trace); RBC/HPF 0-3 HPF (0-3); Specific Gravity, Urine 1.012 (1.002-1.036); Squamous Epithelial 0-3 HPF (0-3); Urobilinogen Normal mg/dL (Less than 2); WBC/HPF 0-3 HPF (0-3); pH, Urine 5.5 (5.0-9.0)
[2024-01-30 12:38] LABS: Urine Culture Reflex No No
== END 2024-01-30 15:47 | disposition home or self-care (01) ==
LOC: ERS 10:33
DX: R11.2 Nausea with vomiting, unspecified (principal); Z55.6 Problems related to health literacy; Z75.3 Unavailability and inaccessibility of health-care facilities
CPT/HCPCS: 74177; 80053; 81001; 83690; 85025; J2405; J2550; 36415; 96374; 96375; Q9967

== ENCOUNTER 2024-01-31 11:45 | Outpatient (CLI) | payer MEDICARE, MEDICAID | END 2024-01-31 11:46 | disposition home or self-care (01) | LOC: PET 11:45 | PROVIDERS: ATTEND Internal Medicine Hematology & Oncology | DX: C61 Malignant neoplasm of prostate (principal); C79.51 Secondary malignant neoplasm of bone | CPT/HCPCS: 78815; A9552; A9595 ==

== ENCOUNTER 2024-04-25 13:15 | Outpatient (CLI) | payer OTHER | END 2024-04-25 13:16 | disposition home or self-care (01) | LOC: PET 13:15 | PROVIDERS: ATTEND Internal Medicine Hematology & Oncology | DX: C61 Malignant neoplasm of prostate (principal); C79.51 Secondary malignant neoplasm of bone; D70.1 Agranulocytosis secondary to cancer chemotherapy; Z12.5 Encounter for screening for malignant neoplasm of prostate | CPT/HCPCS: 78815; 80053; 82248; 83615; 84100; 84153; 84550; 85025; A9595 ==

== ENCOUNTER 2024-04-26 13:13 | Day surgery (SDC) | payer OTHER ==
[2024-04-26] MEDS ORDERED: diphenhydrAMINE 25 MG CAP ONE (13:39)
[2024-04-26] MEDS ORDERED: Acetaminophen 500 MG TAB ONE (13:39)
[2024-04-26] MEDS: Acetaminophen 500 MG TAB PO SCH (13:40)
[2024-04-26] MEDS: diphenhydrAMINE 25 MG CAP PO SCH (13:40)
[2024-04-26 18:00] VITALS: BP 139/77; TEMP 97.7
== END 2024-04-26 18:06 | disposition home or self-care (01) ==
LOC: ONC/OP 13:13
PROVIDERS: ATTEND Internal Medicine Hematology & Oncology
DX: D64.9 Anemia, unspecified (principal); D69.6 Thrombocytopenia, unspecified
CPT/HCPCS: 36430; 86850; 86900; 86901; 86920; P9016

== ENCOUNTER 2024-10-25 08:46 | Day surgery (SDC) | payer OTHER ==
[2024-10-25] MEDS ORDERED: SODIUM CHLORIDE 0.9% IV SCH (09:00)
[2024-10-25] MEDS ORDERED: [UNRECOGNIZED DRUG - OTHER] IV SCH (09:00)
[2024-10-25] MEDS ORDERED: Dexamethasone 10 MG/ML VIAL ONE (10:11)
[2024-10-25] MEDS ORDERED: Famotidine/PF 20 mg/2ml Vial ONE (10:11)
[2024-10-25] MEDS ORDERED: diphenhydrAMINE 50 MG/ML VIAL ONE (10:11)
[2024-10-25] MEDS: Famotidine/PF 20 mg/2ml Vial SLOW IVP SCH (10:12)
[2024-10-25] MEDS: diphenhydrAMINE 50 MG/ML VIAL IVP SCH (10:12)
[2024-10-25] MEDS: Dexamethasone 10 MG/ML VIAL SLOW IVP SCH (10:13)
[2024-10-25] MEDS: Ondansetron 2MG/ML MDV 10 MG in Sodium Chloride 0.9% 50 ML IVPB SCH (10:21)
[2024-10-25 10:53] VITALS: BP 98/55; TEMP 98.2
[2024-10-25] MEDS: [UNRECOGNIZED DRUG - OTHER] IV SCH (11:02)
[2024-10-25] MEDS: SODIUM CHLORIDE 0.9% IV SCH (11:02)
[2024-10-25] MEDS: CARBOPLATIN IVPB SCH (11:02)
[2024-10-25] MEDS: SODIUM CHLORIDE 0.9% IVPB SCH (11:02)
== END 2024-10-25 13:38 | disposition home or self-care (01) ==
LOC: ONC/OP 08:46
PROVIDERS: ATTEND Internal Medicine Hematology & Oncology
DX: Z51.11 Encounter for antineoplastic chemotherapy (principal); C61 Malignant neoplasm of prostate; C79.51 Secondary malignant neoplasm of bone; D70.1 Agranulocytosis secondary to cancer chemotherapy; R30.0 Dysuria
CPT/HCPCS: 96367; 96413; 96417; J1100; J1200; J1308; J2405; J7050; J9043; J9045

== ENCOUNTER 2024-11-10 11:45 | Outpatient (CLI) | payer OTHER | END 2024-11-10 11:46 | disposition home or self-care (01) | LOC: PET 11:45 | PROVIDERS: ATTEND Internal Medicine Hematology & Oncology | DX: R30.0 Dysuria (principal); C61 Malignant neoplasm of prostate; C79.51 Secondary malignant neoplasm of bone; D70.1 Agranulocytosis secondary to cancer chemotherapy; T45.1X5A Adverse effect of antineoplastic and immunosuppressive drugs, initial encounter | CPT/HCPCS: 78815; A9595 ==

== ENCOUNTER 2024-11-14 08:02 | Emergency (ER) | payer OTHER ==
[2024-11-14] MEDS ORDERED: Ketorolac Tromethamine 30 MG (1 mL) VIAL ONE (08:58)
== END 2024-11-14 10:32 | disposition home or self-care (01) ==
LOC: ERS 08:02
DX: M79.605 Pain in left leg (principal); C61 Malignant neoplasm of prostate
CPT/HCPCS: 73590; 93971; J1885; 96372

== ENCOUNTER 2024-11-21 08:55 | Day surgery (SDC) | payer OTHER ==
[2024-11-21] MEDS ORDERED: SODIUM CHLORIDE 0.9% IV SCH (09:15)
[2024-11-21] MEDS ORDERED: [UNRECOGNIZED DRUG - OTHER] IV SCH (09:15)
[2024-11-21 09:40] VITALS: BP 114/69; TEMP 98.3
[2024-11-21] MEDS ORDERED: Dexamethasone 10 MG/ML VIAL ONE (10:54)
[2024-11-21] MEDS ORDERED: diphenhydrAMINE 50 MG/ML VIAL ONE (10:54)
[2024-11-21] MEDS ORDERED: Famotidine/PF 20 mg/2ml Vial ONE (10:54)
[2024-11-21] MEDS: Dexamethasone 10 MG/ML VIAL SLOW IVP SCH (10:55)
[2024-11-21] MEDS: Famotidine/PF 20 mg/2ml Vial SLOW IVP SCH (10:55)
[2024-11-21] MEDS: diphenhydrAMINE 50 MG/ML VIAL IVP SCH (10:56)
[2024-11-21] MEDS: Ondansetron 2MG/ML MDV 10 MG in Sodium Chloride 0.9% 50 ML IVPB SCH (11:28)
[2024-11-21] MEDS: SODIUM CHLORIDE 0.9% IVPB SCH (12:08)
[2024-11-21] MEDS: CARBOPLATIN IVPB SCH (12:08)
[2024-11-21] MEDS: [UNRECOGNIZED DRUG - OTHER] IV SCH (12:09)
[2024-11-21] MEDS: SODIUM CHLORIDE 0.9% IV SCH (12:09)
== END 2024-11-21 15:10 | disposition home or self-care (01) ==
LOC: ONC/OP 08:55
PROVIDERS: ATTEND Internal Medicine Hematology & Oncology
DX: Z51.11 Encounter for antineoplastic chemotherapy (principal); C61 Malignant neoplasm of prostate; C79.51 Secondary malignant neoplasm of bone; D70.1 Agranulocytosis secondary to cancer chemotherapy; R30.0 Dysuria
CPT/HCPCS: 96367; 96375; 96413; 96417; J1100; J1200; J1308; J2405; J7050; J9043; J9045

== ENCOUNTER 2024-12-12 08:56 | Day surgery (SDC) | payer OTHER ==
[~2024-12-12 08:56] MED LIST changes: +CARBOPLATIN IVPB SCH; -Iopamidol-370 76% 500 ML MDV (1 ML CHARGE) ONE; +SODIUM CHLORIDE 0.9% IVPB SCH
[2024-12-12] MEDS ORDERED: diphenhydrAMINE 25 MG CAP PO SCH (09:00)
[2024-12-12] MEDS ORDERED: Acetaminophen 500 MG TAB PO SCH (09:00)
[2024-12-12 10:02] VITALS: BP 98/60; TEMP 97.7
[2024-12-12] MEDS ORDERED: diphenhydrAMINE 50 MG/ML VIAL ONE (10:39)
[2024-12-12] MEDS ORDERED: Famotidine/PF 20 mg/2ml Vial ONE ×2 (10:39→10:45)
[2024-12-12] MEDS ORDERED: Dexamethasone 10 MG/ML VIAL ONE (10:39)
[2024-12-12] MEDS: diphenhydrAMINE 50 MG/ML VIAL IVP SCH (10:49)
[2024-12-12] MEDS: Dexamethasone 10 MG/ML VIAL SLOW IVP SCH (10:49)
[2024-12-12] MEDS: Famotidine/PF 20 mg/2ml Vial SLOW IVP SCH (10:49)
[2024-12-12] MEDS: Ondansetron 2MG/ML MDV 10 MG in Sodium Chloride 0.9% 50 ML IVPB SCH (11:10)
[2024-12-12] MEDS: SODIUM CHLORIDE 0.9% IV SCH (11:22)
[2024-12-12] MEDS: SODIUM CHLORIDE 0.9% IVPB SCH (11:22)
[2024-12-12] MEDS: [UNRECOGNIZED DRUG - OTHER] IV SCH (11:22)
[2024-12-12] MEDS: CARBOPLATIN IVPB SCH (11:22)
== END 2024-12-12 15:00 | disposition home or self-care (01) ==
LOC: ONC/OP 08:56
PROVIDERS: ATTEND Internal Medicine Hematology & Oncology
DX: C61 Malignant neoplasm of prostate (principal); C79.51 Secondary malignant neoplasm of bone; D70.1 Agranulocytosis secondary to cancer chemotherapy; R30.0 Dysuria
CPT/HCPCS: 86850; 86900; 86901; 86920; 96366; 96375; 96413; 96417; J1100; J1200; J2405; J7050; J9043; J9045

== ENCOUNTER 2024-12-13 08:58 | Day surgery (SDC) | payer OTHER ==
[2024-12-13] MEDS ORDERED: diphenhydrAMINE 25 MG CAP ONE (10:17)
[2024-12-13] MEDS ORDERED: Acetaminophen 500 MG TAB ONE (10:17)
[2024-12-13] MEDS: diphenhydrAMINE 25 MG CAP PO SCH (10:18)
[2024-12-13] MEDS: Acetaminophen 500 MG TAB PO SCH (10:18)
[2024-12-13 15:27] VITALS: BP 129/81; TEMP 98.3
== END 2024-12-13 15:27 | disposition home or self-care (01) ==
LOC: ONC/OP 08:58
PROVIDERS: ATTEND Internal Medicine Hematology & Oncology
DX: D64.9 Anemia, unspecified (principal)
CPT/HCPCS: 36430; 86850; 86900; 86901; 86920; P9016

== ENCOUNTER 2025-01-16 09:00 | Day surgery (SDC) | payer OTHER, MEDICAID ==
[~2025-01-16 09:00] MED LIST changes: -CARBOPLATIN IVPB SCH; +Famotidine/PF 20 mg/2ml Vial SLOW IVP SCH; +SODIUM CHLORIDE 0.9% IV SCH; -SODIUM CHLORIDE 0.9% IVPB SCH; +[UNRECOGNIZED DRUG - OTHER] IV SCH
[2025-01-16] MEDS ORDERED: diphenhydrAMINE 50 MG/ML VIAL ONE (10:14)
[2025-01-16] MEDS: diphenhydrAMINE 50 MG/ML VIAL IVP SCH (10:14)
[2025-01-16] MEDS ORDERED: Dexamethasone 10 MG/ML VIAL ONE (10:14)
[2025-01-16] MEDS ORDERED: Famotidine/PF 20 mg/2ml Vial ONE (10:14)
[2025-01-16] MEDS: Famotidine/PF 20 mg/2ml Vial SLOW IVP SCH (10:17)
[2025-01-16] MEDS: Dexamethasone 10 MG/ML VIAL SLOW IVP SCH (10:20)
[2025-01-16] MEDS: Ondansetron 2MG/ML MDV 10 MG in Sodium Chloride 0.9% 50 ML IVPB SCH (10:25)
[2025-01-16 10:32] VITALS: BP 125/62; TEMP 97.7
[2025-01-16] MEDS: [UNRECOGNIZED DRUG - OTHER] IV SCH (11:25)
[2025-01-16] MEDS: SODIUM CHLORIDE 0.9% IV SCH (11:25)
[2025-01-16] MEDS: CARBOPLATIN IVPB SCH (12:35)
[2025-01-16] MEDS: SODIUM CHLORIDE 0.9% IVPB SCH (12:35)
== END 2025-01-16 14:55 | disposition home or self-care (01) ==
LOC: ONC/OP 09:00
PROVIDERS: ATTEND Internal Medicine Hematology & Oncology
DX: Z51.11 Encounter for antineoplastic chemotherapy (principal); C61 Malignant neoplasm of prostate; C79.51 Secondary malignant neoplasm of bone; D70.1 Agranulocytosis secondary to cancer chemotherapy; R30.0 Dysuria
CPT/HCPCS: 96366; 96375; 96413; 96417; J1100; J1200; J1308; J2405; J7050; J9043; J9045

== ENCOUNTER 2025-02-06 08:54 | Day surgery (SDC) | payer OTHER, MEDICAID ==
[2025-02-06 10:49] LABS: #Basophils Less than 0.03 10x3/uL (0.0-0.2); #Eosinophils Less than 0.03 10x3/uL (0.0-0.7); #Monocytes 0.72 10x3/uL (0.11-0.59); #Neutrophils 3.23 10x3/uL (1.40-6.50); %Basophils 0.4 % (0.0-1.0); %Eosinophils 0.0 % (0.0-10.0); %Lymphocytes 29.9 % (21.0-51.0); %Monocytes 12.6 % (0.0-10.0); %Neutrophils 56.6 % (42.0-75.0); Hematocrit 24.2 % (42.0-52.0); Hemoglobin 7.7 g/dL (14.0-18.0); Mean Corpuscular Hemoglobin 31.7 pg (27.0-31.0); Mean Corpuscular Volume 99.6 fL (78.0-98.0); Platelet Count 140 10x3/uL (130-400); Red Blood Cell (RBC) Count 2.43 mill/uL (4.70-6.10); White Blood Cell (WBC) Count 5.71 10x3/uL (4.8-10.8)
[2025-02-06 11:17] LABS: ALT (SGPT) 10 U/L (Less than 45); AST (SGOT) 15 U/L (11-34); Albumin 3.3 g/dL (3.1-4.5); Alkaline Phosphatase 49 U/L (40-110); Anion Gap 17 mmol/L (10-20); BUN (Urea Nitrogen) 13 mg/dL (8.4-25.7); Bilirubin, Total 0.2 mg/dL (0.3-1.2); Calc. Creatinine Clearance 0 mL/min (70-130); Calcium 8.5 mg/dL (7.8-10.44); Carbon Dioxide 16 mmol/L (23-31); Chloride 109 mmol/L (98-107); Globulin 3.3 g/dL (2.4-3.5); Glucose 90 mg/dL (83-110); Potassium 3.8 mmol/L (3.5-5.1); Sodium 138 mmol/L (136-145); Uric Acid 4.1 mg/dL (3.7-7.7)
[2025-02-06] MEDS ORDERED: diphenhydrAMINE 50 MG/ML VIAL IVP SCH (12:00)
[2025-02-06 13:54] VITALS: BP 91/53; TEMP 98
[2025-02-06] MEDS: Ondansetron 2MG/ML MDV 10 MG in Sodium Chloride 0.9% 50 ML IVPB SCH (13:58)
[2025-02-06] MEDS ORDERED: Dexamethasone 10 MG/ML VIAL ONE (14:00)
[2025-02-06] MEDS ORDERED: Famotidine/PF 20 mg/2ml Vial ONE (14:00)
[2025-02-06] MEDS ORDERED: diphenhydrAMINE 50 MG/ML VIAL ONE (14:00)
[2025-02-06] MEDS: diphenhydrAMINE 50 MG/ML VIAL IVP SCH (14:01)
[2025-02-06] MEDS: Famotidine/PF 20 mg/2ml Vial SLOW IVP SCH (14:01)
[2025-02-06] MEDS: Dexamethasone 10 MG/ML VIAL SLOW IVP SCH (14:01)
[2025-02-06] MEDS: SODIUM CHLORIDE 0.9% IV SCH (14:34)
[2025-02-06] MEDS: [UNRECOGNIZED DRUG - OTHER] IV SCH (14:34)
== END 2025-02-06 17:15 | disposition home or self-care (01) ==
LOC: ONC/OP 08:54
PROVIDERS: ATTEND Internal Medicine Hematology & Oncology
DX: C61 Malignant neoplasm of prostate (principal); C79.51 Secondary malignant neoplasm of bone; D70.1 Agranulocytosis secondary to cancer chemotherapy; R30.0 Dysuria
CPT/HCPCS: 80053; 83615; 84550; 85025; 96367; 96413; 96417; J1100; J1200; J1308; J2405; J7050; J9043; J9045

== ENCOUNTER 2025-02-18 14:30 | Inpatient (IN) | payer OTHER, MEDICAID ==
[~2025-02-18 14:30] MED LIST changes: -Famotidine/PF 20 mg/2ml Vial SLOW IVP SCH; +Iopamidol-370 76% 500 ML MDV (1 ML CHARGE) ONE; -SODIUM CHLORIDE 0.9% IV SCH; -[UNRECOGNIZED DRUG - OTHER] IV SCH
[2025-02-18 17:17] LABS: Hematocrit 19.1 % (42.0-52.0); Hemoglobin 6.3 g/dL (14.0-18.0); Mean Corpuscular Hemoglobin 30.7 pg (27.0-31.0); Mean Corpuscular Volume 93.2 fL (78.0-98.0); Platelet Count 86 10x3/uL (130-400); Red Blood Cell (RBC) Count 2.05 mill/uL (4.70-6.10); White Blood Cell (WBC) Count 1.05 10x3/uL (4.8-10.8)
[2025-02-18 17:30] LABS: ALT (SGPT) 11 U/L (Less than 45); AST (SGOT) 16 U/L (11-34); Albumin 3.5 g/dL (3.1-4.5); Alkaline Phosphatase 50 U/L (40-110); Anion Gap 13 mmol/L (10-20); BUN (Urea Nitrogen) 16 mg/dL (8.4-25.7); Bilirubin, Total 0.3 mg/dL (0.3-1.2); Calc. Creatinine Clearance 0 mL/min (70-130); Calcium 8.4 mg/dL (7.8-10.44); Carbon Dioxide 21 mmol/L (23-31); Chloride 108 mmol/L (98-107); Globulin 3.1 g/dL (2.4-3.5); Glucose 101 mg/dL (83-110); Potassium 4.0 mmol/L (3.5-5.1); Sodium 138 mmol/L (136-145)
[2025-02-18] MEDS ORDERED: HYDROcodone/Acetaminophen 10/325 mg Tablet ONE (17:39)
[2025-02-18 17:51] LABS: Glucose, Urine (Dipstick) Negative (Negative); Leukocyte Negative (Negative); Protein, Urine (Dipstick) Negative (Neg-Trace); Specific Gravity, Urine 1.020 (1.005-1.030)
[2025-02-18 17:51] LABS: Anisocytosis SLIGHT = 6-15 cells HPF (0-5); Giant Platelets 1.0 % (0-5); Macrocytosis SLIGHT = 6-15 cells HPF (0-5); Microcytosis SLIGHT = 6-15 cells HPF (0-5); Platelet Adequacy Comment Platelets Decreased; Poikilocytosis SLIGHT = 6-15 cells HPF (0-5); Polychromasia SLIGHT = 2-3 cells HPF (0-2); Schistocytes SLIGHT = 2-5 cells HPF (0-1); Smudge Cells 5.2 %
[2025-02-18 17:54] LABS: Bacteria/HPF None Seen HPF (None Seen); CAUTI Indications for Culture Dysuria,urgency,freq; RBC/HPF 0-3 HPF (0-3); WBC/HPF 0-3 HPF (0-3)
[2025-02-18 17:55] LABS: Urine Culture Reflex No No
[2025-02-18] MEDS ORDERED: Acetaminophen 325 MG TAB PO PRN (19:24)
[2025-02-18] MEDS ORDERED: Enoxaparin 60 MG (0.6 mL) SYRINGE ONE (21:04)
[2025-02-18 22:26] VITALS: BMI 18.6
[2025-02-19] MEDS ORDERED: levETIRAcetam 500 MG TAB ONE (03:46)
[2025-02-19] MEDS: levETIRAcetam 500 MG TAB PO SCH (03:59)
[2025-02-19 04:47] LABS: Hematocrit 22.5 % (42.0-52.0); Hemoglobin 7.5 g/dL (14.0-18.0); Mean Corpuscular Hemoglobin 30.4 pg (27.0-31.0); Mean Corpuscular Volume 91.1 fL (78.0-98.0); Platelet Count 82 10x3/uL (130-400); Red Blood Cell (RBC) Count 2.47 mill/uL (4.70-6.10); White Blood Cell (WBC) Count 1.31 10x3/uL (4.8-10.8)
[2025-02-19 05:00] LABS: ALT (SGPT) 9 U/L (Less than 45); AST (SGOT) 18 U/L (11-34); Albumin 3.3 g/dL (3.1-4.5); Alkaline Phosphatase 47 U/L (40-110); Anion Gap 12 mmol/L (10-20); BUN (Urea Nitrogen) 12 mg/dL (8.4-25.7); Bilirubin, Total 2.5 mg/dL (0.3-1.2); Calc. Creatinine Clearance 84 mL/min (70-130); Calcium 8.1 mg/dL (7.8-10.44); Carbon Dioxide 19 mmol/L (23-31); Chloride 109 mmol/L (98-107); Globulin 3.0 g/dL (2.4-3.5); Glucose 91 mg/dL (83-110); Potassium 3.6 mmol/L (3.5-5.1); Sodium 136 mmol/L (136-145)
[2025-02-19 05:22] LABS: Nucleated RBC (Manual Ct) 9 % (0); Platelet Adequacy Comment Platelets Decreased; Polychromasia SLIGHT = 2-3 cells HPF (0-2)
[2025-02-19] MEDS ORDERED: Enoxaparin 60 MG (0.6 mL) SYRINGE ONE (08:11)
[2025-02-19] MEDS: Enoxaparin 60 MG (0.6 mL) SYRINGE SC SCH (08:13)
[2025-02-19] MEDS ORDERED: Apixaban 5 MG TAB ONE (10:58)
[2025-02-19] MEDS: Apixaban 5 MG TAB PO SCH (11:02)
[2025-02-19 14:10] VITALS: BP 168/81; TEMP 97.7
[2025-02-19] MEDS ORDERED: levETIRAcetam 500 MG TAB PO SCH (21:00)
[2025-02-19] MEDS ORDERED: Apixaban 5 MG TAB PO SCH (21:00)
[2025-02-26] MEDS ORDERED: Apixaban 5 MG TAB PO SCH (09:00)
== END 2025-02-19 17:00 | disposition left against medical advice (07) | DRG 299 ==
LOC: ERS 14:30 → ERHOLD 19:39 → T4-B 02-19 13:09
PROVIDERS: ADMIT Family Medicine; ATTEND Family Medicine
PROC: 30233N1 Transfusion of Nonautologous Red Blood Cells into Peripheral Vein, Percutaneous Approach (ICD-10-PCS; principal; 2025-02-18)
DX: I82.621 Acute embolism and thrombosis of deep veins of right upper extremity (principal); I26.99 Other pulmonary embolism without acute cor pulmonale; D61.818 Other pancytopenia; G40.909 Epilepsy, unspecified, not intractable, without status epilepticus; C61 Malignant neoplasm of prostate; R91.1 Solitary pulmonary nodule; Z98.890 Other specified postprocedural states; Z79.899 Other long term (current) drug therapy; Z90.89 Acquired absence of other organs
CPT/HCPCS: 36430; 71275; 80053; 81001; 83880; 84484; 85025; 86850; 86900; 86901; 96372; J1650; P9016; Q9967